=== PATIENT | female | born 1960 | race Caucasian/White ===

== ENCOUNTER 2017-08-19 17:21 | Emergency (ER) | payer MEDICARE | END 2017-08-19 19:02 | disposition home or self-care (01) | LOC: D.ER 17:21 | DX: S51.852A Open bite of left forearm, initial encounter (principal); W54.0XXA Bitten by dog, initial encounter; Y93.89 Activity, other specified; Y92.019 Unspecified place in single-family (private) house as the place of occurrence of the external cause; S50.12XA Contusion of left forearm, initial encounter; F17.200 Nicotine dependence, unspecified, uncomplicated ==

== ENCOUNTER 2018-04-02 17:38 | Emergency (ER) | payer MEDICARE ==
[~2018-04-02] VITALS: Ht 157.5 cm; Wt 50.0 kg
[2018-04-02 17:50] VITALS: Ht 157.5 cm; Wt 50.0 kg
[2018-04-02] MEDS ORDERED: AUGMENTIN 875-11 TAB PO (19:30)
[2018-04-02 19:55] VITALS: BP 118/75
== END 2018-04-02 19:53 | disposition home or self-care (01) ==
LOC: D.ER 17:38
DX: S91.351A Open bite, right foot, initial encounter (principal); W54.0XXA Bitten by dog, initial encounter; Y93.89 Activity, other specified; Y92.019 Unspecified place in single-family (private) house as the place of occurrence of the external cause; F17.200 Nicotine dependence, unspecified, uncomplicated